=== PATIENT | female | born 1995 ===

== ENCOUNTER 2018-06-20 14:33 | Emergency (ER) | payer MEDICAID ==
--- NOTE | 2018-06-20 16:18 | ED PDOC ---
Lower Extremity Pain/Injury Time Seen by Provider: 06/20/18 15:23 Chief Complaint (Nursing): Lower Extremity Problem/Injury Chief Complaint (Provider): Right knee pain History Per: Patient History/Exam Limitations: no limitations Current Symptoms Are (Timing): Still Present Additional Complaint(s): 23yo female, otherwise well, comes to ER reporting right knee pain. Patient states she was [place] a trampoline park and was jumping around and subsequently fell, landing on her right knee. She reports she is able to walk but with pain. Otherwise, no lower extremity weakness, numbness, tingling. No additional complaints. - Knee Description Of Injury: Fell Past Medical History Reviewed: Historical Data, Nursing Documentation, Vital Signs - Medical History PMH: No Chronic Diseases - Surgical History Surgical History: No Surg Hx - Family History Family History: States: No Known Family Hx - Home Medications Home Medications: Ambulatory Orders Medication Instructions Recorded Ibuprofen [Motrin Tab] 600 mg PO TID 5 Days #15 tab 06/20/18 - Allergies Allergies/Adverse Reactions: Allergies Allergy/AdvReac Type Severity Reaction Status Date / Time No Known Allergies Allergy Verified 06/20/18 14:37 Review of Systems ROS Statement: Except As Marked, All Systems Reviewed And Found Negative Musculoskeletal: Positive for: Other (riht knee pain) Neurological: Negative for: Weakness, Numbness Physical Exam - Reviewed Nursing Documentation Reviewed: Yes Vital Signs Reviewed: Yes - Physical Exam Appears: Positive for: Non-toxic, No Acute Distress Pulses-Dorsalis Pedis (R): 2+ Extremity: Positive for: Normal ROM (FROM of right knee), Tenderness (mild tenderness to right anterior knee), Other (normal distal neurovascular sensations). Negative for: Calf Tenderness, Deformity, Swelling Neurologic/Psych: Positive for: Alert, Oriented. Negative for: Motor/Sensory Deficits Medical Decision Making Medical Decision Making: Assessment: 23yo female with right knee pain s/p a fall Plan: -- XR Right knee -- Upreg -- Motrin 600mg PO XR reviewed, patient has no acute fractures or dislocations. Patient informed that if anything changes in official read, she will get a phone call. Patient placed in brodie wrap and is stable for discharge home. Knee immobilized with brodie wrap. crutches given with instruction. rx; motrin. f/u with ortho if pain continues. Scribe Attestation: Documented by Gill Hernandez acting as a scribe for DARION Kirk. Provider Attestation: All medical record entries made by the Scribe were at my direction and personally dictated by me. I have reviewed the chart and agree that the record accurately reflects my personal performance of the history, physical exam, medical decision making, and the department course for this patient. I have also personally directed, reviewed, and agree with the discharge instructions and disposition. Disposition - Clinical Impression Clinical Impression: Knee pain - Patient ED Disposition Is Patient to be Admitted: No Counseled Patient/Family Regarding: Need For Followup, Rx Given - Disposition Referrals: Viola Duff MD [Staff Provider] - Disposition: Routine/Home Disposition Time: 17:06 Condition: STABLE Prescriptions: Ibuprofen [Motrin Tab] 600 mg PO TID 5 Days #15 tab Instructions: Knee Pain (DC) Forms: [employer] (Yoruba)
--- NOTE | 2018-06-20 17:10 | RAD ---
PROCEDURE: Right Knee Radiographs. HISTORY: trauma COMPARISON: No prior. FINDINGS: BONES: No acute displaced fracture. JOINTS: The patella appears deviated laterally on sunrise view. JOINT EFFUSION: Small suprapatellar joint effusion. OTHER FINDINGS: Soft tissue swelling. No evidence of radiopaque foreign body. IMPRESSION: Soft tissue swelling. Small suprapatellar joint effusion. Patella appears deviated laterally on sunrise view. No acute displaced fracture identified.
[2018-06-20 17:48] VITALS: RESP 18
[2018-06-20 17:49] VITALS: BP 119/71; PULSE 74; TEMP 98.8; O2SAT 99
== END 2018-06-20 17:40 | disposition home or self-care (01) ==
LOC: H.ER 14:33
DX: M25.561 Pain in right knee (principal)